=== PATIENT | male | born 1975 | race Caucasian/White ===

== ENCOUNTER 2021-10-25 05:57 | Emergency (ER) | payer OTHER ==
[2021-10-25 06:56] LABS: HEMOGLOBIN 10.7 gm/dl (14.0-17.5); RED BLOOD COUNT 3.37 M/UL (4.20-5.50); WHITE BLOOD COUNT 9.3 K/UL (4.5-11.0)
[2021-10-25 07:31] LABS: BUN/CREATININE RATIO 44 (0-10)
== END 2021-10-25 09:50 ==
LOC: ER1 05:57
PROVIDERS: Family Medicine
DX: K92.2 Gastrointestinal hemorrhage, unspecified (principal); I10 Essential (primary) hypertension; E78.5 Hyperlipidemia, unspecified; F17.200 Nicotine dependence, unspecified, uncomplicated; Z20.822 Contact with and (suspected) exposure to COVID-19
CPT/HCPCS: 80053; 82270; 82550; 82553; 83605; 83690; 83735; 84439; 84443; 84484; 85025; 85610; 86850; 86900; 86901; 86920; 93005; 96361; 96374; 96375; 99283; C9113; J0696; J2354; P9016; U0002